=== PATIENT | female | born 1990 | race Caucasian/White ===

== ENCOUNTER 2020-03-03 23:36 | Emergency (ER) | payer OTHER ==
[2020-03-03 23:43] VITALS: RESP 18; TEMP 96.8
[2020-03-04 00:38] LABS: Basophils # (A) 0.1 k/uL (0-0.2); Basophils % (A) 1 %; Eosinophils # (A) 0.2 k/uL (0-0.7); Eosinophils % (A) 3 %; HCT 45.4 % (34.0-46.0); HGB 15.4 gm/dL (11.4-16.0); Lymphocytes # (A) 3.4 k/uL (1.0-4.8); Lymphocytes % (A) 46 %; MCH 28.1 pg (25.0-35.0); MCHC 33.9 g/dL (31.0-37.0); MCV 82.7 fL (80.0-100.0); Mean Platelet Volume 6.9; Monocytes # (A) 0.3 k/uL (0-1.0); Monocytes % (A) 4 %; Neutrophils # (A) 3.3 k/uL (1.3-7.7); Neutrophils % (A) 45 %; Platelet Count 272 k/uL (150-450); RBC 5.49 m/uL (3.80-5.40); RDW 13.1 % (11.5-15.5); WBC 7.4 k/uL (3.8-10.6)
[2020-03-04 00:51] LABS: African American GFR (CKD) >90 (>60 ml/min/1.73 sqM); Anion Gap 10 mmol/L; Calcium 9.3 mg/dL (8.4-10.2); Carbon Dioxide 24 mmol/L (22-30); Chloride 99 mmol/L (98-107); Glucose 268 mg/dL (74-99); Non-African American GFR(CKD) >90 (>60 ml/min/1.73 sqM); Sodium 133 mmol/L (137-145)
[2020-03-04 00:52] LABS: Blood Urea Nitrogen 12 mg/dL (7-17); Potassium 4.5 mmol/L (3.5-5.1)
[2020-03-04] MEDS ORDERED: INSULIN REGULAR 100 UNIT/ML VIAL SQ STA (01:04)
[2020-03-04 01:15] VITALS: BP 160/86; PULSE 99
--- NOTE | 2020-03-04 01:19 | ED ---
Extremity Problem HPI - General Chief complaint: Extremity Problem,Nontraumatic Stated complaint: lt foot infection Time Seen by Provider: 03/03/20 23:47 Source: patient Mode of arrival: ambulatory Limitations: no limitations - History of Present Illness MD Complaint: other (Total redness and pain) -: days(s) Location: left, toe Quality: dull Consistency: constant Improves with: nothing Worsens with: nothing - Related Data Previous Rx's Medication Instructions Recorded Clindamycin [Cleocin] 150 mg PO Q6H #28 capsule 03/04/20 Allergies Allergy/AdvReac Type Severity Reaction Status Date / Time sulfamethoxazole AdvReac Nausea & Verified 03/03/20 23:43 [From Bactrim] Vomiting trimethoprim [From Bactrim] AdvReac Nausea & Verified 03/03/20 23:43 Vomiting Review of Systems ROS Statement: Those systems with pertinent positive or pertinent negative responses have been documented in the HPI. ROS Other: All systems not noted in ROS Statement are negative. Constitutional: Denies: fever, chills Respiratory: Denies: cough, dyspnea Cardiovascular: Denies: chest pain, palpitations Gastrointestinal: Denies: abdominal pain, vomiting Skin: Reports: change in color Past Medical History Past Medical History: Cancer, Diabetes Mellitus, Thyroid Disorder History of Any Multi-Drug Resistant Organisms: None Reported Additional Past Surgical History / Comment(s): bone marrow transplant, thyroidectomy Past Psychological History: No Psychological Hx Reported Smoking Status: Never smoker Past Alcohol Use History: None Reported Past Drug Use History: None Reported General Exam Limitations: no limitations Respiratory exam: Present: normal lung sounds bilaterally. Absent: respiratory distress, wheezes, rales, rhonchi, stridor Cardiovascular Exam: Present: regular rate, normal rhythm, normal heart sounds. Absent: systolic murmur, diastolic murmur, rubs, gallop GI/Abdominal exam: Present: soft. Absent: distended, tenderness, guarding, rebound, mass Neurological exam: Present: alert Skin exam: Present: warm, dry, intact, erythema (There is trace erythema of the left great toe. Margin of the nail is ingrown but there is no purulent drainage.) Course Vital Signs 03/03/20 03/04/20 23:38 01:14 Temperature 96.8 F L Pulse Rate 95 99 Respiratory 18 18 Rate Blood Pressure 179/75 160/86 O2 Sat by Pulse 99 97 Oximetry Medical Decision Making - Lab Data Result diagrams: 03/04/20 00:20 03/04/20 00:20 Lab Results 03/04/20 03/04/20 03/04/20 Range/Units 00:20 00:20 01:36 WBC 7.4 (3.8-10.6) k/uL RBC 5.49 H (3.80-5.40) m/uL Hgb 15.4 (11.4-16.0) gm/dL Hct 45.4 (34.0-46.0) % MCV 82.7 (80.0-100.0) fL MCH 28.1 (25.0-35.0) pg MCHC 33.9 (31.0-37.0) g/dL RDW 13.1 (11.5-15.5) % Plt Count 272 (150-450) k/uL Neutrophils % 45 % Lymphocytes % 46 % Monocytes % 4 % Eosinophils % 3 % Basophils % 1 % Neutrophils # 3.3 (1.3-7.7) k/uL Lymphocytes # 3.4 (1.0-4.8) k/uL Monocytes # 0.3 (0-1.0) k/uL Eosinophils # 0.2 (0-0.7) k/uL Basophils # 0.1 (0-0.2) k/uL Sodium 133 L (137-145) mmol/L Potassium 4.5 (3.5-5.1) mmol/L Chloride 99 (98-107) mmol/L Carbon Dioxide 24 (22-30) mmol/L Anion Gap 10 mmol/L BUN 12 (7-17) mg/dL Creatinine 0.32 L (0.52-1.04) mg/dL Est GFR (CKD-EPI)AfAm >90 (>60 ml/min/1.73 sqM) Est GFR (CKD-EPI)NonAf >90 (>60 ml/min/1.73 sqM) Glucose 268 H (74-99) mg/dL POC Glucose (mg/dL) 247 H (75-99) mg/dL POC Glu [employer] ID CorinaCarson Calcium 9.3 (8.4-10.2) mg/dL Acetone, Qual Negative (Negative) Disposition Clinical Impression: Paronychia, Hypertension, Hyperglycemia Disposition: HOME SELF-CARE Condition: Good Instructions (If sedation given, give patient instructions): Paronychia (ED), Hypertension (ED), Diabetic Hyperglycemia (ED) Prescriptions: Clindamycin [Cleocin] 150 mg PO Q6H #28 capsule Is patient prescribed a controlled substance at d/c from ED?: No Referrals: Osiel Fuller Jr, DO [Primary Care Provider] - 1-2 days
[2020-03-04 01:39] LABS: Glucose,Whole Blood 247 mg/dL (75-99)
== END 2020-03-04 01:42 | disposition home or self-care (01) ==
LOC: EC 23:36
DX: L03.032 Cellulitis of left toe (principal); I10 Essential (primary) hypertension; E11.65 Type 2 diabetes mellitus with hyperglycemia; Z88.1 Allergy status to other antibiotic agents; Z88.2 Allergy status to sulfonamides; Z94.81 Bone marrow transplant status
CPT/HCPCS: 36415; 80048; 82009; 85025; 87040; 99283

== ENCOUNTER → 2020-08-13 | Outpatient (CLI) | payer OTHER ==
--- NOTE | 2020-08-13 10:32 | CT ---
EXAMINATION TYPE: CT abdomen pelvis wo con DATE OF EXAM: 08/13/2020 COMPARISON: 10/07/2010 HISTORY: bladder calculus CT DLP: 258.8 mGycm Automated exposure control for dose reduction was used. TECHNIQUE: Helical acquisition of images was performed from the lung bases through the pelvis. FINDINGS: LUNG BASES: Nodular density anterior segment right upper lobe is pleural based and appears to be stab le from prior exam and likely inflammatory scarring.. LIVER/GB: Liver reduced attenuation in some enlargement size measuring 21 cm correlate for hepatomega ly with hepatic steatosis. PANCREAS: No significant abnormality is seen. SPLEEN: Splenic granuloma noted. ADRENALS: No significant abnormality is seen. KIDNEYS: Kidneys prominent in size with lobulation of the kidneys but no hydronephrosis or nephrolith iasis. Subcentimeter hypodensities in left kidney too small to characterize by noncontrast technique but stable from prior exam and likely related to simple cysts. ADENOPATHY: None visualized. OSSEOUS STRUCTURES: Hypertrophic changes spine. BOWEL: No significant abnormality is seen. OTHER: Calcifications in pelvis appears outside of the bladder and likely dystrophic. Aorta of normal caliber. No free fluid or free air. Retroaortic left renal vein. Small 1 cm intramuscular lipoma of the left flank. IMPRESSION: 1. No evidence of bladder calculus. 2. Hepatic steatosis
== END ==
LOC: RADCTMAIN 09:44
PROVIDERS: ATTEND Urology
DX: K76.0 Fatty (change of) liver, not elsewhere classified (principal)
CPT/HCPCS: 74176

== ENCOUNTER → 2022-09-09 | Outpatient (CLI) | payer OTHER ==
--- NOTE | 2022-09-09 10:10 | MM ---
Reason for Exam: Clinical finding. Baseline mammogram. Indicated Problems: Lump or thickening of the left side (size 7) for 4 Day(s). Patient History: Menarche at age 13. Patient has no children. Postmenopausal. Previous chest radiation therapy at age 27. Previous chemotherapy at age 27. Maternal grandmother had breast cancer, age 68. Prior Study Comparison: Patient's first Mammogram. Tissue Density: The breast tissue is almost entirely fat. Findings: Analyzed By CAD. Calcification within the left breast compatible with prior history of port placement status post removal. No new suspicious masses, calcifications or distortions. Overall Assessment: Benign, BI-RAD 2 Management: Diagnostic Breast Ultrasound of the left breast. A clinical breast exam by your physician is recommended on an annual basis and results should be correlated with mammographic findings. This exam should not preclude additional follow-up of suspicious palpable abnormalities. Results were given to the patient verbally at the time of exam. Electronically signed and approved by: Keith Abbott DO
--- NOTE | 2022-09-09 10:51 | USB ---
Reason for Exam: Clinical finding. Patient History: Menarche at age 13. Patient has no children. Postmenopausal. Previous chest radiation therapy at age 27. Previous chemotherapy at age 27. Maternal grandmother had breast cancer, age 68. Technique: Method: Targeted. Findings: The upper inner quadrant of the left breast was scanned. Imaged: Ultrasound imaging of: Area of concern. Postprocedural changes consistent with the calcifications seen on mammogram with posterior acoustic shadowing. No evidence for organizing fluid collection or mass. Overall Assessment: Benign, BI-RAD 2 Management: Screening Mammogram of both breasts at age 41. A clinical breast exam by your physician is recommended on an annual basis and results should be correlated with mammographic findings. This exam should not preclude additional follow-up of suspicious palpable abnormalities. Results were given to the patient verbally at the time of exam. Electronically signed and approved by: Keith Abbott DO
== END | disposition home or self-care (01) ==
LOC: RADMAMWWP 09:28
PROVIDERS: ATTEND Family Medicine
DX: N63.20 Unspecified lump in the left breast, unspecified quadrant (principal); Z80.3 Family history of malignant neoplasm of breast; Z78.0 Asymptomatic menopausal state; Z92.3 Personal history of irradiation
CPT/HCPCS: 77066; 76642; G0279; 77062